=== PATIENT | female | born 1955 | race Caucasian/White ===

== ENCOUNTER → 2017-06-18 | Outpatient (CLI) | payer OTHER | LOC: RAD 15:02 | DX: Z12.31 Encounter for screening mammogram for malignant neoplasm of breast (principal) ==

== ENCOUNTER → 2018-06-29 | Outpatient (CLI) | payer OTHER | LOC: RAD 09:35 | DX: Z12.31 Encounter for screening mammogram for malignant neoplasm of breast (principal) ==

== ENCOUNTER → 2018-07-31 | Outpatient (CLI) | payer OTHER | LOC: CAT 12:33 | DX: Z13.6 Encounter for screening for cardiovascular disorders (principal); E78.00 Pure hypercholesterolemia, unspecified; I25.10 Atherosclerotic heart disease of native coronary artery without angina pectoris ==

== ENCOUNTER → 2018-08-26 | Outpatient (CLI) | payer OTHER ==
[~2018-08-26] VITALS: Ht 172.7 cm; Wt 79.4 kg
[~2018-08-26] MED LIST: CALCIUM CIT-VI1 EAC1 PO; CENTRUM SILVER1 EAC4 PO; CRANBERRY500 M3 PO; FISH OIL 1,001000 M2 PO; GLUCOSAMINE HC500 MG PO; NABUMETONE 500500 M1 PO; PROBIOTIC1 EAC1 PO; SUPER B WITH V1 EAC1 PO
--- NOTE | 2018-08-27 13:14 | PATH ---
[facility] [address] [place] [address] PATHOLOGY RPT PROCEDURE Name: BRIT SCHWARTZ Room #: REG [facility] M.R.#: [id number] ������������������ Admission: 08/26/18 ������������������ Date of : 59 Discharge: Report #: [id number] Path Case #: [id number] [facility] Accession Number: [id number] . 01 Material submitted: . PART A: BX POLYP AT ASCENDING COLON X2 PART B: BX POLYP AT SIGMOID COLON PART C: BX POLYP AT RECTUM . 01 Clinical history: . Pre-OP DX: Family history Post-OP DX: Colon polyps, rectal polyps, diverticulosis . 02 Diagnosis: A. Polyp x2, at ascending colon, endoscopic biopsy: - One fragment showing tubular adenoma without high-grade dysplasia. - Remainder of fragments showing hyperplastic polyps without dysplasia. . B. Polyp, at sigmoid colon, endoscopic biopsy: - Compatible with a hyperplastic polyp. - Negative for dysplasia. . C. Polyp, at rectum, endoscopic biopsy: - Hyperplastic polyp. - Negative for dysplasia. (IUV:flako; 08/27/2018) QMS/08/27/2018 . 02 Electronically signed: . Kaley Sanderson MD, Pathologist NPI- [id number] . 01 Gross description: . A. Received in formalin labeled "Brit Schwartz, BX polyp at ascending colon x2," are multiple segments of florez soft tissue measuring 1.1 x 0.5 x 0.1 cm in aggregate dimensions. The specimen is filtered and entirely submitted in cassette A1. . B. Received in formalin labeled "Brit Schwartz, BX polyp at sigmoid colon," is a single segment of florez soft tissue measuring 0.5 cm in maximum dimension. The specimen is entirely submitted in cassette B1. . C. Received in formalin labeled "Brit Schwartz, BX polyp at rectum," are 2 segments of florez soft tissue measuring 0.7 x 0.3 x 0.2 cm in aggregate dimensions and ranging from 0.3 to 0.4 cm in maximum dimension. The specimen is submitted entirely in cassette C1. (TSD; 08/26/2018) [place] [address] PATHOLOGY RPT PROCEDURE Name: BRIT SCHWARTZ CHUY Room #: REG CLI M.Vivian.#: [id number] ������������������ Admission: 08/26/18 ������������������ Date of : 59 Discharge: Report #: [id number] Path Case #: [id number] TOB/TOB . 02 Pathologist provided ICD-10: D12.2, D12.5, K62.1 . 02 CPT . 824615, 209858, 176553 Specimen Comment: A courtesy copy of this report has been sent to Specimen Comment: [phone], . Specimen Comment: Report sent to / DR VALE Specimen Comment: A duplicate report has been generated due to demographic updates. Performed at: [address], [place] [id number] MD Alexander Wilde MD Phone: [phone] Performed at: [address] [id number] MD Kaley Sanderson MD Phone: [phone]
--- NOTE | 2018-08-28 08:29 | P ---
[facility] [place] [address] PROCEDURE REPORT Name: BRIT VIRK Room #: REG [facility].#: [id number] Admission: 08/26/18 ������������������ Attend Phys: Cas Sheldon Discharge: ������������������ Date of : 59 Report #: [id number] THIS REPORT FOR: //name// CC: Cas Wade MD DATE OF SERVICE: 08/26/2018 PROCEDURE PERFORMED: Colonoscopy with biopsies. HISTORY OF PRESENT ILLNESS: The patient is a 63-year-old female who presents today for routine screening colonoscopy. Last colonoscopy was 5 years ago and negative. She does have a family history of colon cancer. She denies any symptoms. DESCRIPTION OF PROCEDURE: The risks and benefits of the procedure were explained to the patient, those risks including but not limited to bleeding, perforation and the risk of sedation. She understood these risks and gave informed consent. Sedation was given using propofol per anesthesia. Next, a digital rectal exam was initially performed, which was normal. Next, using a standard Olympus colonoscope, the scope was placed in the patient's anus and advanced under direct vision to the cecum. The overall prep was excellent. The cecum and ileocecal valve were normal in appearance. In the ascending colon, 2 polyps were noted. The smaller was 3 mm in size, the larger was 5, both removed by cold forceps, otherwise normal. Transverse and descending colon were normal. A few scattered diverticula were noted in the sigmoid colon, no evidence of inflammation. Also, noted was a 3 mm sessile polyp removed with cold forceps. In the rectum, another 3 mm sessile polyp was also removed with cold forceps. On retroflexion, no abnormalities. Small external hemorrhoids noted on exam as well. The scope was then withdrawn and the procedure terminated. The patient tolerated the procedure well. IMPRESSION: 1. Small colonic polyps. 2. Small hemorrhoids. 3. Sigmoid diverticulosis. 4. Otherwise, normal colonoscopy. RECOMMENDATIONS: 1. Await biopsy results. 2. Repeat colonoscopy in [address] [address] PROCEDURE REPORT Name: BRIT VIRK Room #: REG [facility] Jean-Baptiste#: [id number] Admission: 08/26/18 ������������������ Attend Phys: Cas Sheldon Discharge: ������������������ Date of : 59 Report #: [id number] Thank you for allowing me to participate in her care. ��������������������������������������������� <ELECTRONICALLY SIGNED> ���������������������������������������� By: Cas Grimaldo MD ��������������������������������������������� 08/28/18 0829 [id number] Cas Grimaldo MD /nt
== END | disposition home or self-care (01) ==
LOC: EDSTATUS 07:34 → GI 07:35
DX: Z12.11 Encounter for screening for malignant neoplasm of colon (principal); D12.2 Benign neoplasm of ascending colon; K63.5 Polyp of colon; K62.1 Rectal polyp; K57.30 Diverticulosis of large intestine without perforation or abscess without bleeding; K64.4 Residual hemorrhoidal skin tags; Z80.0 Family history of malignant neoplasm of digestive organs; Z79.899 Other long term (current) drug therapy; Z98.890 Other specified postprocedural states
CPT/HCPCS: 62110; 62900

== ENCOUNTER → 2019-07-29 | Outpatient (CLI) | payer OTHER | LOC: RAD 11:47 | DX: Z12.31 Encounter for screening mammogram for malignant neoplasm of breast (principal) ==

== ENCOUNTER → 2019-11-30 | Outpatient (CLI) | payer OTHER | LOC: LAB 11:03 | PROVIDERS: ATTEND Family Medicine | DX: Z20.828 Contact with and (suspected) exposure to other viral communicable diseases (principal) ==

== ENCOUNTER → 2020-09-05 | Outpatient (CLI) | payer OTHER | LOC: RAD 10:21 | PROVIDERS: ATTEND Family Medicine | DX: Z12.31 Encounter for screening mammogram for malignant neoplasm of breast (principal) ==

== ENCOUNTER → 2020-09-07 | Outpatient (CLI) | payer OTHER ==
[2020-09-07 09:57] LABS: HEMATOCRIT 41.5 % (37.0-47.0); HEMOGLOBIN 13.9 gm/dL (12.0-15.0); MCH 31.4 pg (26.0-34.0); MCHC 33.6 g/dL (28.0-37.0); MCV 93.4 fL (80.0-100.0); RBC 4.44 mil/uL (4.20-5.00); RDW 13.1 % (10.5-14.5); WBC 5.4 thou/uL (4.0-11.0)
[2020-09-07 10:18] LABS: CHOLESTEROL 220 mg/dL (<200); GLUCOSE 94 mg/dL (74-106); HDL CHOLESTEROL 77 mg/dL (>40); LDL CHOLESTEROL 123 mg/dL (<100); TC:HDL 2.9 Ratio (Not establshd); TRIGLYCERIDE 104 mg/dL (<150); VLDL 21 mg/dL (<40)
== END ==
LOC: LAB 09:02
PROVIDERS: ATTEND Family Medicine
DX: Z00.00 Encounter for general adult medical examination without abnormal findings (principal)